=== PATIENT | male | born 1945 | race Caucasian/White ===

== ENCOUNTER → 2017-09-22 | Outpatient (CLI) | payer MEDICARE, BC ==
[~2017-09-22] MED LIST: ADULT LOW DOSE81 M1 PO; AGGRENOX1 CAPSULE PO; ASPIRIN CHEWABL81 M1 PO; AUGMENTIN875 MG PO; BENICAR40 MG PO; BETA PROSTATE PO; CRANBERRY CAPS PO; CRANBERRY400 MG PO; CRESTOR10 MG PO; CYANOCOBALAM1000 MCG PO; FELODIPINE ER10 MG PO; FISH OIL 1,0001 EAC8 PO; FLOVENT DISKUS1 DIS2 IH; LABETALOL HCL200 MG PO; MULTIVITAMIN1 EAC1 PO; NIFEDICAL XL60 MG PO; Ocean Nasal 0.65% NS; PRESERVISION S1 EACH PO; PreserVision Softgel PO; RANITIDINE HCL300 MG PO; VIAGRA100 MG PO; VITAMIN D31000 UNIT PO
== END | disposition home or self-care (01) ==
LOC: CDC 09:30
DX: Z01.810 Encounter for preprocedural cardiovascular examination (principal); I44.0 Atrioventricular block, first degree; R94.31 Abnormal electrocardiogram [ECG] [EKG]
CPT/HCPCS: 93000